=== PATIENT | female | born 1990 | race Caucasian/White ===

== ENCOUNTER 2016-11-09 19:18 | Emergency (ER) | payer OTHER ==
[2016-11-09 19:26] VITALS: BP 156/107; PULSE 80; TEMP 98.7; BMI 21.2
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
[2016-11-09] MEDS ORDERED: KETOROLAC TROMETHAMINE 60 MG/2 ML VIAL IM ONE (21:08)
[2016-11-09] MEDS ORDERED: KETOROLAC TROMETHAMINE 60 MG/2 ML VIAL ONE (21:10)
== END 2016-11-09 23:15 | disposition home or self-care (01) ==
LOC: FER 19:18
PROC: 3E0233Z Introduction of Anti-inflammatory into Muscle, Percutaneous Approach (ICD-10-PCS; principal; 2016-11-09)
DX: S16.1XXA Strain of muscle, fascia and tendon at neck level, initial encounter (principal); V43.52XA Car driver injured in collision with other type car in traffic accident, initial encounter; Y93.89 Activity, other specified; Y92.410 Unspecified street and highway as the place of occurrence of the external cause
CPT/HCPCS: 72050-TC; 84703; 99282-25

== ENCOUNTER 2023-08-17 20:40 | Emergency (ER) | payer OTHER ==
[2023-08-17 20:55] VITALS: BP 136/98; PULSE 89; RESP 16; TEMP 98.9; BMI 23.0
[2023-08-17] MEDS ORDERED: KETOROLAC TROMETHAMINE 30 MG/1 ML VIAL IM ONE (21:12)
[2023-08-17] MEDS ORDERED: METOCLOPRAMIDE HCL 10 MG TABLET (FP) PO ONE ×2 (21:13→21:23)
[2023-08-17] MEDS ORDERED: KETOROLAC TROMETHAMINE 30 MG/1 ML VIAL ONE (21:23)
[2023-08-17] MEDS ORDERED: ONDANSETRON *ODT* 4 MG TABLET SL ONE (22:14)
[2023-08-17] MEDS ORDERED: ONDANSETRON *ODT* 4 MG TABLET ONE (22:15)
== END 2023-08-17 22:27 | disposition home or self-care (01) ==
LOC: FER 20:40
PROC: 3E0233Z Introduction of Anti-inflammatory into Muscle, Percutaneous Approach (ICD-10-PCS; principal; 2023-08-17)
DX: R51.9 Headache, unspecified (principal)
CPT/HCPCS: 99284-25; Q0162

== ENCOUNTER 2023-08-18 20:02 | Emergency (ER) | payer OTHER ==
[2023-08-18 20:30] VITALS: BP 130/89; PULSE 76; RESP 16; TEMP 99.4; BMI 23.0
[2023-08-18] MEDS ORDERED: METOCLOPRAMIDE HCL INJECTION 10 MG/2 ML VIAL IVPB ONE (20:32)
[2023-08-18] MEDS ORDERED: KETOROLAC TROMETHAMINE 30 MG/1 ML VIAL IVPUSH ONE (20:33)
[2023-08-18] MEDS ORDERED: SUMATRIPTAN SUCCINATE 6 MG/0.5 ML VIAL SQ ONE (20:40)
[2023-08-18] MEDS ORDERED: DIHYDROERGOTAMINE MESYLATE 1 MG/1 ML AMPULE IVPB STA (20:41)
[2023-08-18] MEDS ORDERED: SODIUM CHLORIDE 1,000 ML IV ONE (20:42)
[2023-08-18] MEDS ORDERED: METOCLOPRAMIDE HCL INJECTION 10 MG/2 ML VIAL ONE (21:00)
[2023-08-18] MEDS ORDERED: KETOROLAC TROMETHAMINE 30 MG/1 ML VIAL ONE (21:01)
[2023-08-18] MEDS ORDERED: SUMATRIPTAN SUCCINATE 6 MG/0.5 ML VIAL ONE (21:01)
[2023-08-18 21:42] LABS: HEMATOCRIT 34.6 % (32.4-45.2); MCHC 34.7 g/dl (32.0-36.0); MEAN CELL VOLUME 89.5 fl (80-96); MEAN PLT VOLUME 8.5 fl (7.5-11.1); PLATELET COUNT 180.2 10^3/uL (134-434); RBC 3.87 10^6/uL (3.60-5.2)
[2023-08-18 21:59] LABS: ALBUMIN 4.3 g/dl (3.4-5.0); BILIRUBIN,TOTAL 0.5 mg/dl (0.2-1); BLOOD UREA NITROGEN 9.3 mg/dl (7-18); CREATININE 0.8 mg/dl (0.6-1.3); POTASSIUM 3.7 mmol/L (3.5-5.1); SGOT/AST 29.6 U/L (15-37); SGPT/ALT 39.1 U/L (7-52); TOT PROT 6.5 g/dl (6.4-8.2)
[2023-08-18] MEDS ORDERED: ONDANSETRON 4 MG/2 ML VIAL IVPB ONE (22:37)
[2023-08-18] MEDS ORDERED: ONDANSETRON 4 MG/2 ML VIAL ONE (22:40)
== END 2023-08-18 23:32 | disposition home or self-care (01) ==
LOC: SUPCPDRO 20:02 → FER 20:02
PROC: 3E033GC Introduction of Other Therapeutic Substance into Peripheral Vein, Percutaneous Approach (ICD-10-PCS; principal; 2023-08-18)
PROC: 3E0333Z Introduction of Anti-inflammatory into Peripheral Vein, Percutaneous Approach (ICD-10-PCS; 2023-08-18)
PROC: 3E033GC Introduction of Other Therapeutic Substance into Peripheral Vein, Percutaneous Approach (ICD-10-PCS; 2023-08-18)
PROC: 3E033GC Introduction of Other Therapeutic Substance into Peripheral Vein, Percutaneous Approach (ICD-10-PCS; 2023-08-18)
PROC: 3E0337Z Introduction of Electrolytic and Water Balance Substance into Peripheral Vein, Percutaneous Approach (ICD-10-PCS; 2023-08-18)
PROC: 3E023GC Introduction of Other Therapeutic Substance into Muscle, Percutaneous Approach (ICD-10-PCS; 2023-08-18)
DX: R51.9 Headache, unspecified (principal)
CPT/HCPCS: 36415; 70450-TC; 70486-TC; 80053; 85027; 99284-25